=== PATIENT | male | born 1955 | race American Indian/Alaskan Native ===

== ENCOUNTER 2021-10-13 18:41 | Emergency (ER) | payer MEDICARE ==
[2021-10-14] MEDS ORDERED: HYDROcodone/ACETAMINOPHEN 7.5-325MG TAB PO ONE (03:27)
[2021-10-14] MEDS ORDERED: ONDANSETRON 4 MG ODT TAB PO ONE (03:27)
--- NOTE | 2021-10-14 06:23 | Emergency Department Report ---
ED Lower Extremity HPI - General Chief Complaint: Extremity Injury, Lower Stated Complaint: LEG PAIN - History of Present Illness Initial Comments: Patient is a 66-year-old -[place] male with a history of ESRD on hemodialysis who presented to the ED with complaint of acute onset persistent severe left knee pain after he lost balance at home and fell down landing on the left knee over 12 hours ago. Patient states that the pain in the left knee has worsened in the last 12 hours such that bearing weight on the left leg makes the left knee pain worse. Patient denies head or neck injuries, nausea and vomiting, numbness and tingling or weakness of upper and lower extremities bilaterally, chest pain, shortness of breath, change in vision, back pain or hip pain. MD Complaint: knee injury (Left knee pain and swelling), fall -: Sudden, hour(s) (12) Injury: Knee: Left (left knee pain) Type of Injury: hyperextension Place: home Severity: severe Severity scale (0 -10): 7 Improves With: nothing Worsens With: weight bearing, movement, palpation Context: fall Associated Symptoms: swelling, able to partially bear weight. denies: snap/pop sensation, numbness, tingling, unable to bear weight, ambulatory - Related Data Previous Rx's Medication Instructions Recorded Last Taken Type Acetaminophen [Tylenol] 500 mg PO Q6HR PRN #40 tablet 10/14/21 Unknown Rx Baclofen 20 mg PO Q12H PRN #24 10/14/21 Unknown Rx traMADoL [Ultram] 50 mg PO Q6HR PRN #12 tablet 10/14/21 Unknown Rx Allergies Allergy/AdvReac Type Severity Reaction Status Date / Time No Known Allergies Allergy Unverified 10/14/21 02:57 ED Review of Systems ROS: Stated complaint: LEG PAIN Other details as noted in HPI Constitutional: denies: chills, fever Eyes: denies: eye pain, eye discharge, vision change ENT: denies: ear pain, throat pain Respiratory: denies: cough, shortness of breath, wheezing Cardiovascular: denies: chest pain, palpitations Endocrine: no symptoms reported Gastrointestinal: denies: abdominal pain, nausea, vomiting, diarrhea Genitourinary: denies: urgency, dysuria Musculoskeletal: joint swelling (left knee pain and swelling), arthralgia (left knee pain and swelling). denies: back pain Skin: denies: rash, lesions Neurological: denies: headache, weakness, paresthesias Psychiatric: denies: anxiety, depression Hematological/Lymphatic: denies: easy bleeding, easy bruising ED Past Medical Hx - Past Medical History Hx Renal Disease: Yes (ESRD on hemodialysis) - Medications Home Medications: Home Medications Medication Instructions Recorded Confirmed Last Taken Type Acetaminophen [Tylenol] 500 mg PO Q6HR PRN #40 tablet 10/14/21 Unknown Rx Baclofen 20 mg PO Q12H PRN #24 10/14/21 Unknown Rx traMADoL [Ultram] 50 mg PO Q6HR PRN #12 tablet 10/14/21 Unknown Rx ED Physical Exam - General General appearance: alert, in no apparent distress - Head Head exam: Present: atraumatic, normocephalic, normal inspection - Eye Eye exam: Present: normal appearance, PERRL, EOMI Pupils: Present: normal accommodation - ENT ENT exam: Present: normal exam, normal orophraynx, mucous membranes moist, TM's normal bilaterally, normal external ear exam - Neck Neck exam: Present: normal inspection, full ROM. Absent: tenderness, lymphadenopathy - Respiratory Respiratory exam: Present: normal lung sounds bilaterally. Absent: respiratory distress, wheezes, rales, rhonchi, stridor, chest wall tenderness, accessory muscle use, decreased breath sounds, prolonged expiratory - Cardiovascular Cardiovascular Exam: Present: regular rate, normal rhythm, normal heart sounds. Absent: systolic murmur, diastolic murmur, rubs, gallop - GI/Abdominal GI/Abdominal exam: Present: soft, normal bowel sounds. Absent: tenderness, guarding, rebound, hyperactive bowel sounds, hypoactive bowel sounds, organomegaly, mass - Extremities Exam Extremities exam: Present: normal inspection, full ROM, tenderness (Palpable left knee tenderness with mild swelling), normal capillary refill, joint swelling (left knee). Absent: pedal edema, calf tenderness - Back Exam Back exam: Present: normal inspection, full ROM. Absent: tenderness, CVA tenderness (R), CVA tenderness (L), muscle spasm, paraspinal tenderness, vertebral tenderness - Neurological Exam Neurological exam: Present: alert, oriented X3, CN II-XII intact, normal gait, reflexes normal - Psychiatric Psychiatric exam: Present: normal affect, normal mood - Skin Skin exam: Present: warm, dry, intact, normal color. Absent: rash ED Course Vital Signs 10/13/21 10/14/21 18:43 03:06 Temperature 98.5 F Pulse Rate 69 Respiratory 16 18 Rate Blood Pressure 146/85 [Left] O2 Sat by Pulse 99 Oximetry ED Lower Extremity MDM - Radiology Data Radiology results: report reviewed, image reviewed [facility] [address] [place] [address] XRay Report Signed Patient: VALENTE GANDHI III R#: [id number] : 1955 Acct:[id number] Age/Sex: 66 / M ADM Date: 10/13/21 Loc: ED Attending Dr: Ordering Physician: JOEY JONES Date of Service: 10/14/21 Procedure(s): XR knee 3V LT Accession Number(s): [id number] cc: JOEY JONES Fluoro Time In Minutes: Left knee-3 views INDICATION: Pain - fall. COMPARISON: None available. IMPRESSION: No acute osseous abnormality. Normal alignment. Moderate tricompartmental degenerative arthrosis. Mild generalized anterior soft tissue swelling over the knee. Signer Name: Bert Paris MD Signed: 10/14/2021 6:26 AM Workstation Name: [id number] Transcribed By: JW Dictated By: Bert Paris MD Electronically Authenticated By: Bert Paris MD Signed Date/Time: 10/14/21625 DD/ 4 TD/TT: - Medical Decision Making This is a 66-year-old -[place] male with a history of ESRD on hemodialysis who presented to the ED with complaint of acute onset persistent severe left knee pain after he lost balance at home and fell down landing on the left knee over 12 hours ago. Patient states that the pain in the left knee has worsened in the last 12 hours such that bearing weight on the left leg makes the left knee pain worse. In the ED, patient is alert and oriented x3 and is not in any distress. Patient however appears to be in pain. Patient was treated for pain in the ED and left knee x-ray showed no acute fractures or subluxations but chronic degenerative joint disease. Patient left knee was splinted with Rakesh wrap and the patient was discharged home on pain medications and given crutches. Patient was advised to return to the ED immediately if symptoms get worse. Patient was otherwise advised to follow-up with his primary care physician in 5 to 7 days for reevaluation. - Differential Diagnosis knee fracture; knee osteoarthritis; knee sprain; knee contusion Critical care attestation.: If time is entered above; I have spent that time in minutes in the direct care of this critically ill patient, excluding procedure time. ED Disposition Clinical Impression: Sprain of left knee/leg Qualifiers: Encounter type: initial encounter Qualified Code(s): S83.92XA - Sprain of unspecified site of left knee, initial encounter Contusion of left knee Qualifiers: Encounter type: initial encounter Qualified Code(s): S80.02XA - Contusion of left knee, initial encounter Disposition: HOME / SELF CARE / HOMELESS Is pt being admited?: No Does the pt Need Aspirin: No Condition: Stable Instructions: Contusion, [id number], Knee Sprain, Adult, [id number] Additional Instructions: The left knee x-ray showed no acute fractures or subluxations. Therefore take medication with food, drink plenty of fluids and follow-up with your primary care physician in 5 to 7 days for reevaluation. Return to the ED immediately if symptoms get worse. Prescriptions: Acetaminophen [Tylenol] 500 mg PO Q6HR PRN #40 tablet PRN Reason: Pain , Severe (7-10) Baclofen 20 mg PO Q12H PRN #24 PRN Reason: Muscle Spasm traMADoL [Ultram] 50 mg PO Q6HR PRN #12 tablet PRN Reason: Pain Referrals: CELINE VALENTINO MD [Other] - 3-5 Days Time of Disposition: 06:26 Print Language: GERMAN
--- NOTE | 2021-10-14 06:31 | XRay Report ---
Left knee-3 views INDICATION: Pain - fall. COMPARISON: None available. IMPRESSION: No acute osseous abnormality. Normal alignment. Moderate tricompartmental degenerative arthrosis. Mild generalized anterior soft tissue swelling over the knee. Signer Name: Bert Paris MD Signed: 10/14/2021 6:26 AM Workstation Name: [id number]
[2021-10-14 07:11] VITALS: BP 214/91
== END 2021-10-14 07:17 | disposition home or self-care (01) ==
LOC: ED 18:41
DX: S83.92XA Sprain of unspecified site of left knee, initial encounter (principal); W18.39XA Other fall on same level, initial encounter; Y93.89 Activity, other specified; Y92.89 Other specified places as the place of occurrence of the external cause; Y99.8 Other external cause status
CPT/HCPCS: 99283; J3490; Q0162